=== PATIENT | female | born 2000 | race Caucasian/White ===

== ENCOUNTER 2019-11-18 15:04 | Emergency (ER) | payer OTHER, SELFPAY ==
--- NOTE | 2019-11-18 15:16 | ED.GENADULT ---
HPI - General Adult General Chief complaint: Dizziness Stated complaint: ear issues/dizziness Time Seen by Provider: 11/18/19 15:16 Source: patient, family and RN notes reviewed History of Present Illness HPI narrative: Patient is a 19-year-old female presents the urgent care with her mother with complaints of intermittent dizziness and possible ear issues. Patient states that she did start on Plaquenil a few months ago and they did know that that may have been a side effect to the medication. Patient states that she has been taking Dramamine [id number] with some relief but does not tend to work for very long periods of time. Patient denies of any nausea or vomiting. No other acute complaints. No acute distress noted. Patient mother aware of the plan of care. Related Data Home Medications Medication Instructions Recorded Confirmed hydroxychloroquine 200 mg PO BID 11/18/19 11/18/19 Allergies Allergy/AdvReac Type Severity Reaction Status Date / Time Penicillins Allergy Unknown HIVES Unverified 11/18/19 15:16 RED DYE 40 Allergy Unknown HIVES Uncoded 11/18/19 15:16 Review of Systems Review of Systems: Narrative: CONSTITUTIONAL: Denies fever, chills, or sweats. EYES: Denies visual changes, redness, or discharge. ENT: Denies rhinorrhea, congestion, sore throat, or otalgia. CARDIOVASCULAR: Denies chest pain, palpitations, or edema. RESPIRATORY: Denies cough or dyspnea. GASTROINTESTINAL: Denies abdominal pain, nausea, vomiting, or diarrhea. GENITOURINARY: Denies dysuria or hematuria. SKIN: Denies rash or itching. MUSCULOSKELETAL: Denies back pain, joint pain, or myalgia. NEUROLOGIC: Reports of intermittent dizziness All other systems reviewed are negative, except as documented in HPI. PMFSH Comments At the time of my signature, I reviewed and agree with the nursing past medical, surgical, social, and family history. There is no relevant family history pertinent to the patient complaint. Exam Narrative: Exam Narrative: GENERAL: This is a well-nourished, well-developed patient, in no apparent distress. HEAD: normocephalic, atraumatic. EYES: PERRL. Sclera clear/white. Vision is grossly intact. EARS: External ears normal, auditory canals clear and without drainage, TMs normal without perforation. Hearing grossly intact. NOSE: External nose normal with no obvious nasal discharge THROAT: Mucous membranes moist NECK: Neck supple CARDIOVASCULAR: Regular rate and rhythm without murmurs, gallops, or rubs. RESPIRATORY: Clear to auscultation. Breath sounds equal bilaterally. No wheezes, rales, or rhonchi. SKIN: warm, intact with no suspicious lesions or rash, good texture and turgor. NEURO: awake, alert, and oriented to person, place and time. There were no obvious focal neurologic abnormalities. EXTREMITIES: No clubbing, cyanosis, or edema. Course Vital Signs Vital signs: Vital Signs Temperature 98.0 F 11/18/19 15:20 Pulse Rate 97 11/18/19 15:20 Respiratory Rate 16 11/18/19 15:20 Blood Pressure 133/64 11/18/19 15:20 Pulse Oximetry 100 11/18/19 15:20 Temperature 98.0 F 11/18/19 15:20 Pulse Rate 97 11/18/19 15:20 Respiratory Rate 16 11/18/19 15:20 Blood Pressure 133/64 11/18/19 15:20 Pulse Oximetry 100 11/18/19 15:20 Reviewed Medical Decision Making MDM Narrative Medical decision making narrative: Advised the patient to use meclizine as needed for dizziness, as prescribed. Follow-up with oxygen equipment aide regarding possible side effect of medication. Follow-up with ENT if dizziness persists for further evaluation. Differential Diagnosis Differential Diagnosis: Pneumonia, Allergic Rhinitis, Upper respiratory cough syndrome, Pharyngitis, Sinusitis, Bronchitis, otitis media, viral URI, Asthma/reactive airway disease, COPD, emphysema Vital Signs Vital Signs: Vital Signs Temperature 98.0 F 11/18/19 15:20 Pulse Rate 97 11/18/19 15:20 Respiratory Rate 16 11/18/19 15:20 Blood
[2019-11-18 15:20] VITALS: BP 133/64; PULSE 97; RESP 16; TEMP 36.7; O2SAT 100
== END 2019-11-18 15:38 | disposition home or self-care (01) ==
PROVIDERS: Emergency Provider Nurse Practitioner Family; PCP Pediatrics
DX: R42 Dizziness and giddiness (principal)
CPT/HCPCS: 99213; G0463